=== PATIENT | male | born 1950 | race Native Hawaiian/Other Pacific Islander ===

== ENCOUNTER → 2019-05-16 | Outpatient (CLI) | payer MEDICARE, OTHER | END | disposition home or self-care (01) | LOC: RADMN 10:41 | PROVIDERS: ATTEND Legal Medicine | DX: Z12.2 Encounter for screening for malignant neoplasm of respiratory organs (principal); J98.11 Atelectasis; M85.80 Other specified disorders of bone density and structure, unspecified site; M47.814 Spondylosis without myelopathy or radiculopathy, thoracic region; I70.0 Atherosclerosis of aorta; J84.10 Pulmonary fibrosis, unspecified; I25.10 Atherosclerotic heart disease of native coronary artery without angina pectoris; M19.019 Primary osteoarthritis, unspecified shoulder; F17.200 Nicotine dependence, unspecified, uncomplicated; J98.4 Other disorders of lung | CPT/HCPCS: 71250 ==

== ENCOUNTER → 2020-06-28 | Outpatient (CLI) | payer MEDICARE, OTHER | END | disposition home or self-care (01) | LOC: RADMN 12:03 | PROVIDERS: ATTEND Legal Medicine | DX: Z12.2 Encounter for screening for malignant neoplasm of respiratory organs (principal); I27.0 Primary pulmonary hypertension; Z87.891 Personal history of nicotine dependence | CPT/HCPCS: 71250 ==

== ENCOUNTER → 2021-06-26 | Outpatient (CLI) | payer MEDICARE, OTHER | END | disposition home or self-care (01) | LOC: RADMN 14:05 | PROVIDERS: ATTEND Legal Medicine | DX: M17.0 Bilateral primary osteoarthritis of knee (principal); J98.4 Other disorders of lung; I70.292 Other atherosclerosis of native arteries of extremities, left leg; M51.26 Other intervertebral disc displacement, lumbar region; R91.1 Solitary pulmonary nodule; I70.8 Atherosclerosis of other arteries; Z87.891 Personal history of nicotine dependence | CPT/HCPCS: 71250; 72100; 73562-TC ==